=== PATIENT | female | born 1935 | race Caucasian/White ===

== ENCOUNTER 2017-10-25 10:18 | Emergency (ER) | payer MEDICARE ==
[~2017-10-25] VITALS: Ht 172.7 cm; Wt 77.1 kg
[~2017-10-25 10:18] MED LIST: ATOR20 PO; ATOR40TA; ATOR40TA PO; ATORVASTATIN; BENADRYL25 MG PO; BENZ2 PO; Bactrim Ds Tab1 EACH PO; Bentyl20 MG PO; CAND16; CAND16 PO; CEPH500 PO; CEREFOLIN NAC1 EACH PO; CIPR500 PO; CLOP75; CLOP75 PO; Colace100 MG PO; DONE10 PO; DONE5 PO; DULO30 PO; Diovan320 MG PO; ESCI20; EXCELON PATCH PO; Enulose10 GM/15 M PO; GABA300; GABA300 PO; GABA600 PO; HALO2 PO; HYDACE5 PO; HYDMOR2 PO; Keflex500 MG PO; LEVOXYL; LEVSOD100; LEVSOD100 PO; LEVSOD88 PO; MEMA10 PO; NAMENDA XR28 MG PO; Neurontin 300300 MG PO; Norco 5-325 Ta1 EACH PO; ONDA4ODT MM; OXYC5; OXYC5 PO; OXYTROL PATCH; PHENA200 PO; RAZADYNE; RXHYDMOR2 PO; RXONDA4ODT MM; RXPHEN200 PO; RXPROM25 PO; SIME80CH PO; SULTRIDS PO; SULTRISS PO; TRAZ50 PO; VALS80 PO; Zithromax250 MG PO; Zofran Odt4 MG PO; Zofran4 MG PO; [UNRECOGNIZED DRUG - CODE]; [UNRECOGNIZED DRUG - CODE] PO; [UNRECOGNIZED DRUG - OTHER]
[2017-10-25 11:38] LABS: BASOPHILS ABSOLUTE AUTO 0.01 K/mm3 (0.00-0.23); BASOPHILS PERCENT AUTO 0 % (0-2); EOSINOPHILS PERCENT AUTO 0 % (0-6); Hematocrit 43.5 % (33.0-51.0); Hemoglobin 14.5 g/dL (11.5-16.0); IMMATURE GRAN ABSOLUTE AUTO 0.04 K/mm3 (0.00-0.10); IMMATURE GRAN PERCENT AUTO 1 % (0-1); LYMPHOCYTES ABSOLUTE AUTO 0.92 K/mm3 (0.84-5.20); LYMPHOCYTES PERCENT AUTO 27 % (21-46); MONOCYTES ABSOLUTE AUTO 0.61 K/mm3 (0.16-1.47); MONOCYTES PERCENT AUTO 18 % (4-13); Mean Corpuscular HGB 32.2 pg (26.0-34.0); Mean Corpuscular HGB Conc 33.3 g/dL (31.5-36.5); Mean Corpuscular Volume 97 fL (80-100); Mean Platelet Volume 9.8 fL (9.1-12.4); NEUTROPHILS ABSOLUTE AUTO 1.89 K/mm3 (1.96-9.15); NEUTROPHILS PERCENT AUTO 54 % (41-73); Platelet Count 145 K/mm3 (150-400); RDW Coefficient Variation 13.5 % (11.7-14.2); RDW Standard Deviation 47.9 fL (35.1-46.3); White Blood Cell Count 3.47 K/mm3 (4.00-11.30)
[2017-10-25 11:45] LABS: Alanine Aminotransfer (ALT/SGP 22 U/L (12-78); Albumin, Blood 3.6 g/dL (3.4-5.0); Albumin/Globulin Ratio 0.9 (0.8-1.8); Alk Phos 108 U/L (50-136); Anion Gap 6 mmol/L (6-16); Aspartate Aminotrans (AST/SGOT 22 U/L (12-37); Bilirubin, Total 0.5 mg/dL (0.1-1.0); Blood Urea Nitrogen 15 mg/dL (8-24); Bun/Creatinine Ratio 18.5 (12.0-20.0); CO2, Blood 30 mmol/L (21-32); Calcium, Blood 8.6 mg/dL (8.5-10.1); Chloride, Blood 107 mmol/L (98-108); Creatinine, Blood 0.81 mg/dL (0.40-1.00); Globulin, Blood 3.8 g/dL (2.2-4.0); Glomerular Filtration Rate >60 (60-); Glucose, Blood 98 mg/dL (70-99); Sodium, Blood 143 mmol/L (136-145); Total Protein, Blood 7.4 g/dL (6.4-8.2)
== END 2017-10-25 13:25 | disposition home or self-care (01) ==
LOC: ER 10:18
PROVIDERS: Emergency Medicine
DX: R20.2 Paresthesia of skin (principal); F03.90 Unspecified dementia, unspecified severity, without behavioral disturbance, psychotic disturbance, mood disturbance, and anxiety; I10 Essential (primary) hypertension; Z88.0 Allergy status to penicillin; Z88.8 Allergy status to other drugs, medicaments and biological substances; Z88.1 Allergy status to other antibiotic agents; Z88.6 Allergy status to analgesic agent; Z91.09 Other allergy status, other than to drugs and biological substances; Z79.899 Other long term (current) drug therapy
CPT/HCPCS: 80053; 81000; 85025; 93005; 93010; 99284

== ENCOUNTER 2018-01-24 14:21 | Emergency (ER) | payer MEDICARE ==
[~2018-01-24] VITALS: Ht 170.2 cm; Wt 72.6 kg
== END 2018-01-24 15:39 | disposition home or self-care (01) ==
LOC: ER 14:21
DX: S09.90XA Unspecified injury of head, initial encounter (principal); I10 Essential (primary) hypertension; F03.90 Unspecified dementia, unspecified severity, without behavioral disturbance, psychotic disturbance, mood disturbance, and anxiety; Z86.73 Personal history of transient ischemic attack (TIA), and cerebral infarction without residual deficits; Z79.01 Long term (current) use of anticoagulants; W01.0XXA Fall on same level from slipping, tripping and stumbling without subsequent striking against object, initial encounter
CPT/HCPCS: 70450; 99284-25

== ENCOUNTER → 2018-02-05 | Outpatient (CLI) | payer MEDICARE | END | disposition home or self-care (01) | LOC: PLD 11:54 → LAB SHORT 11:54 | DX: L57.0 Actinic keratosis (principal) | CPT/HCPCS: 88305 ==

== ENCOUNTER 2018-02-13 17:43 | Emergency (ER) | payer MEDICARE ==
[~2018-02-13] VITALS: Ht 170.2 cm; Wt 70.3 kg
[2018-02-13 18:53] LABS: BASOPHILS ABSOLUTE AUTO 0.01 K/mm3 (0.00-0.23); BASOPHILS PERCENT AUTO 0 % (0-2); EOSINOPHILS PERCENT AUTO 0 % (0-6); Hematocrit 40.9 % (33.0-51.0); Hemoglobin 13.9 g/dL (11.5-16.0); IMMATURE GRAN ABSOLUTE AUTO 0.06 K/mm3 (0.00-0.10); IMMATURE GRAN PERCENT AUTO 1 % (0-1); LYMPHOCYTES PERCENT AUTO 12 % (21-46); MONOCYTES ABSOLUTE AUTO 0.96 K/mm3 (0.16-1.47); MONOCYTES PERCENT AUTO 17 % (4-13); Mean Corpuscular HGB 33.7 pg (26.0-34.0); Mean Corpuscular Volume 99 fL (80-100); Mean Platelet Volume 9.5 fL (9.1-12.4); NEUTROPHILS ABSOLUTE AUTO 3.91 K/mm3 (1.96-9.15); NEUTROPHILS PERCENT AUTO 69 % (41-73); Platelet Count 140 K/mm3 (150-400); RDW Coefficient Variation 13.3 % (11.7-14.2); Red Blood Cell Count 4.12 M/mm3 (3.80-5.20); White Blood Cell Count 5.64 K/mm3 (4.00-11.30)
[2018-02-13 19:12] LABS: Bilirubin, Total 0.5 mg/dL (0.1-1.0); Bun/Creatinine Ratio 15.8 (12.0-20.0); Calcium, Blood 8.9 mg/dL (8.5-10.1); Creatinine, Blood 0.95 mg/dL (0.40-1.00); Globulin, Blood 3.9 g/dL (2.2-4.0); Potassium, Blood 3.7 mmol/L (3.5-5.5); Total Protein, Blood 7.9 g/dL (6.4-8.2)
== END 2018-02-13 20:20 | disposition home or self-care (01) ==
LOC: ER 17:43
PROVIDERS: Emergency Medicine
DX: R10.13 Epigastric pain (principal); R11.2 Nausea with vomiting, unspecified; F03.90 Unspecified dementia, unspecified severity, without behavioral disturbance, psychotic disturbance, mood disturbance, and anxiety; I10 Essential (primary) hypertension; Z86.73 Personal history of transient ischemic attack (TIA), and cerebral infarction without residual deficits; Z88.8 Allergy status to other drugs, medicaments and biological substances; Z88.0 Allergy status to penicillin; Z88.1 Allergy status to other antibiotic agents; Z79.899 Other long term (current) drug therapy
CPT/HCPCS: 36415; 80053; 83690; 84484; 85025; 96374; 99284-25; J2405

== ENCOUNTER 2018-02-23 11:08 | Emergency (ER) | payer MEDICARE ==
[~2018-02-23] VITALS: Ht 170.2 cm; Wt 70.3 kg
[2018-02-23 12:59] LABS: Source, Urine Clean Catch
[2018-02-23 13:12] LABS: Blood, Urine 4+ (Neg); Glucose Qualitative, Urine Neg (Neg); Ketones, Urine Neg (Neg); Leukocyte Esterase, Urine 1+ (Neg); Nitrite, Urine Neg (Neg); Protein, Urine 2+ (Neg); Specific Gravity, Urine 1.025 (1.003-1.022); Urobilinogen, Urine 1+ (Normal)
[2018-02-23 13:25] LABS: Appearance, Urine Clear (Clear); Bilirubin, Urine 1+ (Neg); Color, Urine Amber (P-Yellow)
[2018-02-23 13:28] LABS: BASOPHILS PERCENT AUTO 0 % (0-2); EOSINOPHILS PERCENT AUTO 0 % (0-6); Hematocrit 44.3 % (33.0-51.0); Hemoglobin 14.9 g/dL (11.5-16.0); IMMATURE GRAN ABSOLUTE AUTO 0.03 K/mm3 (0.00-0.10); IMMATURE GRAN PERCENT AUTO 1 % (0-1); LYMPHOCYTES ABSOLUTE AUTO 1.07 K/mm3 (0.84-5.20); LYMPHOCYTES PERCENT AUTO 25 % (21-46); MONOCYTES ABSOLUTE AUTO 0.79 K/mm3 (0.16-1.47); MONOCYTES PERCENT AUTO 18 % (4-13); Mean Corpuscular HGB 33.2 pg (26.0-34.0); Mean Corpuscular HGB Conc 33.6 g/dL (31.5-36.5); Mean Corpuscular Volume 99 fL (80-100); Mean Platelet Volume 9.5 fL (9.1-12.4); NEUTROPHILS ABSOLUTE AUTO 2.41 K/mm3 (1.96-9.15); NEUTROPHILS PERCENT AUTO 56 % (41-73); Platelet Count 173 K/mm3 (150-400); RDW Coefficient Variation 13.2 % (11.7-14.2); RDW Standard Deviation 48.6 fL (35.1-46.3); Red Blood Cell Count 4.49 M/mm3 (3.80-5.20)
[2018-02-23 13:34] LABS: Bacteria Rare /hpf; Squamous Epithelial Cells Many /hpf (Few); White Blood Cells, Urine 0-2 /hpf (0-5)
[2018-02-23 13:50] LABS: Alanine Aminotransfer (ALT/SGP 20 U/L (12-78); Alk Phos 100 U/L (50-136); Anion Gap 6 mmol/L (6-16); Aspartate Aminotrans (AST/SGOT 25 U/L (12-37); Bilirubin, Total 0.7 mg/dL (0.1-1.0); Blood Urea Nitrogen 10 mg/dL (8-24); Bun/Creatinine Ratio 10.9 (12.0-20.0); CO2, Blood 29 mmol/L (21-32); Calcium, Blood 8.6 mg/dL (8.5-10.1); Chloride, Blood 106 mmol/L (98-108); Creatinine, Blood 0.92 mg/dL (0.40-1.00); Globulin, Blood 4.2 g/dL (2.2-4.0); Glomerular Filtration Rate >60 (60-); Glucose, Blood 105 mg/dL (70-99); Potassium, Blood 3.9 mmol/L (3.5-5.5); Sodium, Blood 141 mmol/L (136-145); Total Protein, Blood 8.2 g/dL (6.4-8.2)
[2018-02-23] MEDS ORDERED: Prilosec Otc20 MG PO (15:08)
[2018-02-23] MEDS ORDERED: ONDA4ODT MM (15:08)
== END 2018-02-23 15:18 | disposition home or self-care (01) ==
LOC: ER 11:08
PROVIDERS: Emergency Medicine
DX: R10.9 Unspecified abdominal pain (principal); R11.0 Nausea; I10 Essential (primary) hypertension; F03.90 Unspecified dementia, unspecified severity, without behavioral disturbance, psychotic disturbance, mood disturbance, and anxiety; Z86.73 Personal history of transient ischemic attack (TIA), and cerebral infarction without residual deficits; Z88.0 Allergy status to penicillin; Z88.8 Allergy status to other drugs, medicaments and biological substances; Z88.1 Allergy status to other antibiotic agents; Z79.899 Other long term (current) drug therapy
CPT/HCPCS: 36415; 74177; 80053; 81001; 83690; 84484; 85025; 96361; 96374; 96376; 99284-25; J2405; J7030; Q9967

== ENCOUNTER → 2018-07-14 | Outpatient (CLI) | payer MEDICARE ==
[~2018-07-14] MED LIST changes: +Prilosec Otc20 MG PO
[2018-07-14 11:40] LABS: Source, Urine Clean Catch
[2018-07-14 12:34] LABS: Appearance, Urine Clear (Clear); Bilirubin, Urine Neg (Neg); Blood, Urine 3+ (Neg); Color, Urine Yellow (P-Yellow); Glucose Qualitative, Urine Neg (Neg); Ketones, Urine Neg (Neg); Leukocyte Esterase, Urine 1+ (Neg); Nitrite, Urine Neg (Neg); Protein, Urine 1+ (Neg); Urobilinogen, Urine 1+ (Normal)
[2018-07-14 12:46] LABS: Bacteria Few /hpf; Squamous Epithelial Cells Few /hpf (Few)
== END | disposition home or self-care (01) ==
LOC: LAB SHORT 11:38 → LAB 11:38 → LAB FUT 07-14 10:10
PROVIDERS: Internal Medicine
DX: R30.0 Dysuria (principal)
CPT/HCPCS: 81001; 87086

== ENCOUNTER → 2018-07-20 | Outpatient (CLI) | payer MEDICARE ==
[2018-07-20 12:34] LABS: Bilirubin, Urine Neg (Neg); Blood, Urine 1+ (Neg); Glucose Qualitative, Urine Neg (Neg); Ketones, Urine Neg (Neg); Leukocyte Esterase, Urine 1+ (Neg); Nitrite, Urine Neg (Neg); Protein, Urine 1+ (Neg); Urobilinogen, Urine NORM (Normal)
[2018-07-20 12:48] LABS: Appearance, Urine Hazy (Clear); Color, Urine Yellow (P-Yellow)
[2018-07-20 12:56] LABS: Bacteria Rare /hpf; Squamous Epithelial Cells Rare /hpf (Few)
== END | disposition home or self-care (01) ==
LOC: LAB 09:30 → LAB SHORT 09:30 → EDSTATUS 07-17 15:10 → LAB FUT 07-17 15:10
PROVIDERS: Internal Medicine
DX: N39.0 Urinary tract infection, site not specified (principal)
CPT/HCPCS: 81001; 87077; 87086; 87186

== ENCOUNTER → 2018-07-31 | Outpatient (CLI) | payer MEDICARE ==
[2018-07-31 12:07] LABS: Bilirubin, Urine Neg (Neg); Blood, Urine 2+ (Neg); Glucose Qualitative, Urine Neg (Neg); Ketones, Urine Neg (Neg); Leukocyte Esterase, Urine 2+ (Neg); Nitrite, Urine Neg (Neg); Protein, Urine 1+ (Neg); Urobilinogen, Urine NORM (Normal)
[2018-07-31 12:26] LABS: Appearance, Urine Clear (Clear); Color, Urine Yellow (P-Yellow)
[2018-07-31 12:28] LABS: Bacteria Mod /hpf; Squamous Epithelial Cells Few /hpf (Few); White Blood Cells, Urine 50-100 /hpf (0-5)
== END | disposition home or self-care (01) ==
LOC: LAB 08:30 → LAB SHORT 08:30 → LAB FUT 07-24 20:15 → EDSTATUS 07-24 20:15
PROVIDERS: Internal Medicine
DX: N39.0 Urinary tract infection, site not specified (principal)
CPT/HCPCS: 81001; 87086

== ENCOUNTER → 2018-08-07 | Outpatient (CLI) | payer MEDICARE ==
[2018-08-07 14:47] LABS: Bilirubin, Urine Neg (Neg); Blood, Urine 2+ (Neg); Glucose Qualitative, Urine Neg (Neg); Ketones, Urine Neg (Neg); Leukocyte Esterase, Urine Neg (Neg); Nitrite, Urine Neg (Neg); Protein, Urine Neg (Neg); Urobilinogen, Urine NORM (Normal)
[2018-08-07 14:55] LABS: Appearance, Urine Clear (Clear); Color, Urine Yellow (P-Yellow)
[2018-08-07 14:56] LABS: Bacteria Rare /hpf; Red Blood Cells, Urine 0-2 /hpf (0-2); Squamous Epithelial Cells Rare /hpf (Few); White Blood Cells, Urine 0-2 /hpf (0-5)
== END | disposition home or self-care (01) ==
LOC: LAB 11:20 → LAB SHORT 11:20
PROVIDERS: Internal Medicine
DX: N39.0 Urinary tract infection, site not specified (principal)
CPT/HCPCS: 81001

== ENCOUNTER 2019-03-01 08:52 | Emergency (ER) | payer MEDICARE ==
[~2019-03-01] VITALS: Ht 170.2 cm; Wt 72.6 kg
[2019-03-01] MEDS ORDERED: RIVASTIGMINE1 EACH TD (10:08)
[2019-03-01] MEDS ORDERED: ATOR40TA PO (10:08)
[2019-03-01] MEDS ORDERED: LEVO-T88 MCG PO (10:15)
[2019-03-01] MEDS ORDERED: LOSARTAN POTASS25 M2 PO (10:15)
[2019-03-01] MEDS ORDERED: OXYC5 PO (10:15)
[2019-03-01] MEDS ORDERED: Bentyl20 MG PO (10:16)
[2019-03-01] MEDS ORDERED: GABA300 PO (10:17)
[2019-03-01 10:48] LABS: BASOPHILS ABSOLUTE AUTO 0.01 K/mm3 (0.00-0.23); BASOPHILS PERCENT AUTO 0 % (0-2); EOSINOPHILS PERCENT AUTO 0 % (0-6); Hematocrit 41.9 % (33.0-51.0); Hemoglobin 14.3 g/dL (11.5-16.0); IMMATURE GRAN ABSOLUTE AUTO 0.02 K/mm3 (0.00-0.10); IMMATURE GRAN PERCENT AUTO 1 % (0-1); LYMPHOCYTES ABSOLUTE AUTO 1.02 K/mm3 (0.84-5.20); LYMPHOCYTES PERCENT AUTO 28 % (21-46); MONOCYTES PERCENT AUTO 22 % (4-13); Mean Corpuscular HGB 33.6 pg (26.0-34.0); Mean Corpuscular HGB Conc 34.1 g/dL (31.5-36.5); Mean Corpuscular Volume 98 fL (80-100); Mean Platelet Volume 10.7 fL (9.1-12.4); NEUTROPHILS ABSOLUTE AUTO 1.85 K/mm3 (1.96-9.15); NEUTROPHILS PERCENT AUTO 50 % (41-73); Platelet Count 153 K/mm3 (150-400); RDW Coefficient Variation 12.9 % (11.7-14.2); RDW Standard Deviation 45.9 fL (35.1-46.3); Red Blood Cell Count 4.26 M/mm3 (3.80-5.20)
[2019-03-01 11:05] LABS: Alanine Aminotransfer (ALT/SGP 19 U/L (12-78); Albumin, Blood 3.7 g/dL (3.4-5.0); Alk Phos 104 U/L (50-136); Anion Gap 6 mmol/L (6-16); Aspartate Aminotrans (AST/SGOT 16 U/L (12-37); Bilirubin, Total 0.7 mg/dL (0.1-1.0); Blood Urea Nitrogen 12 mg/dL (8-24); Bun/Creatinine Ratio 15.6 (12.0-20.0); CO2, Blood 28 mmol/L (21-32); Calcium, Blood 8.4 mg/dL (8.5-10.1); Chloride, Blood 111 mmol/L (98-108); Creatinine, Blood 0.77 mg/dL (0.40-1.00); Globulin, Blood 3.6 g/dL (2.2-4.0); Glomerular Filtration Rate >60 (60-); Glucose, Blood 92 mg/dL (70-99); Potassium, Blood 3.8 mmol/L (3.5-5.5); Sodium, Blood 145 mmol/L (136-145); Total Protein, Blood 7.3 g/dL (6.4-8.2)
[2019-03-01 11:06] LABS: Troponin I <0.015 ng/mL (0.000-0.040)
== END 2019-03-01 12:48 | disposition home or self-care (01) ==
LOC: ER 08:52
PROVIDERS: Physician Assistant
DX: S09.90XA Unspecified injury of head, initial encounter (principal); I10 Essential (primary) hypertension; Z86.73 Personal history of transient ischemic attack (TIA), and cerebral infarction without residual deficits; Z88.8 Allergy status to other drugs, medicaments and biological substances; Z88.0 Allergy status to penicillin; Z88.1 Allergy status to other antibiotic agents; Z79.899 Other long term (current) drug therapy; Z79.02 Long term (current) use of antithrombotics/antiplatelets; W19.XXXA Unspecified fall, initial encounter
CPT/HCPCS: 36415; 70450; 71046; 72125; 73502; 73630; 80053; 83880; 84484; 85025; 93005; 93010; 99284-25

== ENCOUNTER → 2019-04-25 | Outpatient (CLI) | payer MEDICARE ==
[~2019-04-25] MED LIST changes: +CEFP200 PO; +LEVO-T88 MCG PO; +LOSARTAN POTASS25 M2 PO; +RIVASTIGMINE1 EACH TD
[2019-04-25 11:18] LABS: CHOL/HDL RATIO 2.3; Cholesterol 154 mg/dL (50-200); HDL Cholesterol 68 mg/dL (>39); Low Density Lipoprotein Chol 68 mg/dL (0-110); Triglycerides 90 mg/dL (30-160); Very Low Density Lipoprot Chol 18 mg/dL (6-32)
[2019-04-25 11:20] LABS: Thyroid Stimulating Hormone 0.371 uIU/mL (0.360-4.800)
== END | disposition home or self-care (01) ==
LOC: LAB 10:20 → LAB SHORT 10:20
PROVIDERS: Internal Medicine
DX: E55.9 Vitamin D deficiency, unspecified (principal); F32.9 Major depressive disorder, single episode, unspecified
CPT/HCPCS: 36415; 80061; 84443

== ENCOUNTER 2019-08-31 17:27 | Emergency (ER) | payer MEDICARE ==
[~2019-08-31] VITALS: Ht 165.1 cm; Wt 65.8 kg
== END 2019-08-31 18:37 | disposition left against medical advice (07) ==
LOC: ER 17:27
DX: Z53.21 Procedure and treatment not carried out due to patient leaving prior to being seen by health care provider (principal)

== ENCOUNTER → 2020-02-19 | Outpatient (CLI) | payer MEDICARE ==
[~2020-02-19] MED LIST changes: +CEFPODOXIME PR100 MG PO
[2020-02-19 15:40] LABS: Appearance, Urine Clear (Clear); Bilirubin, Urine Neg (Neg); Blood, Urine Neg (Neg); Color, Urine Yellow (P-Yellow); Glucose Qualitative, Urine Neg (Neg); Ketones, Urine Neg (Neg); Leukocyte Esterase, Urine Neg (Neg); Nitrite, Urine Neg (Neg); Protein, Urine Neg (Neg); Specific Gravity, Urine 1.015 (1.003-1.022); Urobilinogen, Urine NORM (Normal)
== END | disposition home or self-care (01) ==
LOC: LAB SHORT 12:30 → OLS 12:30 → LAB FUT 02-13 15:00
PROVIDERS: Internal Medicine
DX: N39.0 Urinary tract infection, site not specified (principal)
CPT/HCPCS: 81003

== ENCOUNTER 2020-06-28 18:53 | Emergency (ER) | payer MEDICARE ==
[~2020-06-28] VITALS: Ht 170.2 cm; Wt 65.8 kg
[2020-06-28] MEDS ORDERED: ACET500 PO (19:03)
[2020-06-28] MEDS ORDERED: ATOR20 PO (19:03)
[2020-06-28] MEDS ORDERED: CLOP75 PO (19:04)
[2020-06-28] MEDS ORDERED: CEPH250A PO (19:04)
[2020-06-28] MEDS ORDERED: GABA300 PO (19:05)
[2020-06-28] MEDS ORDERED: EUTHYROX88 MCG PO (19:06)
[2020-06-28] MEDS ORDERED: LOSA25 PO (19:10)
[2020-06-28] MEDS ORDERED: OMEPRAZOLE20 MG PO (19:11)
[2020-06-28] MEDS ORDERED: MEMANTINE HCL E28 MG PO (19:11)
[2020-06-28] MEDS ORDERED: METAMUCIL POWD575 GM PO (19:11)
[2020-06-28] MEDS ORDERED: SERT100 PO (19:12)
[2020-06-28] MEDS ORDERED: EXELON TOP (19:12)
[2020-06-28] MEDS ORDERED: TRAZ50 PO (19:13)
[2020-06-28 19:29] LABS: BASOPHILS PERCENT AUTO 0 % (0-2); EOSINOPHILS PERCENT AUTO 0 % (0-6); Hematocrit 38.1 % (33.0-51.0); Hemoglobin 12.3 g/dL (11.5-16.0); IMMATURE GRAN ABSOLUTE AUTO 0.02 K/mm3 (0.00-0.10); IMMATURE GRAN PERCENT AUTO 0 % (0-1); LYMPHOCYTES PERCENT AUTO 16 % (21-46); MONOCYTES ABSOLUTE AUTO 1.41 K/mm3 (0.16-1.47); MONOCYTES PERCENT AUTO 28 % (4-13); Mean Corpuscular HGB 32.1 pg (26.0-34.0); Mean Corpuscular HGB Conc 32.3 g/dL (31.5-36.5); Mean Corpuscular Volume 100 fL (80-100); Mean Platelet Volume 10.3 fL (9.1-12.4); NEUTROPHILS ABSOLUTE AUTO 2.87 K/mm3 (1.96-9.15); NEUTROPHILS PERCENT AUTO 56 % (41-73); Platelet Count 147 K/mm3 (150-400); RDW Coefficient Variation 13.6 % (11.7-14.2); Red Blood Cell Count 3.83 M/mm3 (3.80-5.20)
[2020-06-28 19:34] LABS: Source, Urine Catheter
[2020-06-28 19:37] LABS: Bilirubin, Urine Neg (Neg); Blood, Urine 4+ (Neg); Glucose Qualitative, Urine Neg (Neg); Ketones, Urine 1+ (Neg); Leukocyte Esterase, Urine Neg (Neg); Nitrite, Urine Neg (Neg); Protein, Urine 4+ (Neg); Specific Gravity, Urine 1.015 (1.003-1.022); Urobilinogen, Urine NORM (Normal)
[2020-06-28 19:39] LABS: Color, Urine Red (P-Yellow)
[2020-06-28 19:40] LABS: Appearance, Urine Bloody (Clear)
[2020-06-28 19:44] LABS: Bacteria Rare /hpf; Red Blood Cells, Urine TNTC /hpf (0-2); Squamous Epithelial Cells Rare /hpf (Few); White Blood Cells, Urine 0-2 /hpf (0-5)
[2020-06-28 19:47] LABS: International Normalized Ratio 1.1; Prothrombin Time Results 11.7 Sec (9.7-11.5)
[2020-06-28 19:51] LABS: Albumin, Blood 3.6 g/dL (3.4-5.0); Albumin/Globulin Ratio 1.1 (0.8-1.8); Bilirubin, Total 0.5 mg/dL (0.1-1.0); Bun/Creatinine Ratio 17.8 (12.0-20.0); Calcium, Blood 9.1 mg/dL (8.5-10.1); Creatinine, Blood 1.18 mg/dL (0.40-1.00); Globulin, Blood 3.2 g/dL (2.2-4.0); Total Protein, Blood 6.8 g/dL (6.4-8.2)
[2020-06-28] MEDS ORDERED: CIPR250 PO (20:19)
== END 2020-06-28 20:47 | disposition home or self-care (01) ==
LOC: ER 18:53
PROVIDERS: Emergency Medicine
DX: R31.9 Hematuria, unspecified (principal); I10 Essential (primary) hypertension; Z79.02 Long term (current) use of antithrombotics/antiplatelets; Z88.0 Allergy status to penicillin; Z88.8 Allergy status to other drugs, medicaments and biological substances; Z88.6 Allergy status to analgesic agent; Z91.041 Radiographic dye allergy status; Z87.440 Personal history of urinary (tract) infections; Z79.899 Other long term (current) drug therapy; Z88.1 Allergy status to other antibiotic agents; Z86.73 Personal history of transient ischemic attack (TIA), and cerebral infarction without residual deficits
CPT/HCPCS: 36415; 76770; 80053; 81001; 85025; 85610; 85730; 99284-25; A9270; P9612

== ENCOUNTER → 2020-07-04 | Outpatient (CLI) | payer MEDICARE ==
[~2020-07-04] MED LIST changes: +ACET500 PO; +ATROPINE SULFATE2 M5 SL; +Ativan1 MG PO; +Bentyl20 MG; +CEPH250A PO; +CIPR250 PO; +EUTHYROX88 MCG PO; +EXELON TOP; +LACT10SY; +LOSA25 PO; +MEMANTINE HCL E28 MG PO; +METAMUCIL POWD575 GM; +METAMUCIL POWD575 GM PO; +MIRALAX119 GM PO; +MORP20L SL; +OMEPRAZOLE20 MG PO; +ONDA4 PO; +PHENAZOPYRIDINE95 MG; +SEROQUEL25 MG PO; +SERT100 PO; +SIME80CH; +VITAMIN D31000 UNI1
[2020-07-04 15:21] LABS: Source, Urine Clean Catch
[2020-07-04 15:51] LABS: Appearance, Urine Clear (Clear); Bilirubin, Urine Neg (Neg); Blood, Urine Neg (Neg); Color, Urine Amber (P-Yellow); Glucose Qualitative, Urine Neg (Neg); Ketones, Urine Neg (Neg); Leukocyte Esterase, Urine 1+ (Neg); Nitrite, Urine Neg (Neg); Protein, Urine 1+ (Neg); Urobilinogen, Urine NORM (Normal)
[2020-07-04 16:09] LABS: Calcium Oxalate Crystals Mod /hpf; Hyaline Casts 0-2 /lpf (0-2)
[2020-07-04 16:10] LABS: Bacteria Few /hpf; Red Blood Cells, Urine 0-2 /hpf (0-2); Squamous Epithelial Cells Few /hpf (Few)
== END | disposition home or self-care (01) ==
LOC: LAB 10:30 → LAB SHORT 10:30
PROVIDERS: Internal Medicine
DX: R30.9 Painful micturition, unspecified (principal)
CPT/HCPCS: 81001; 87086

== ENCOUNTER → 2020-08-30 | Outpatient (CLI) | payer MEDICARE ==
[2020-08-30 12:46] LABS: Appearance, Urine Clear (Clear); Bilirubin, Urine Neg (Neg); Blood, Urine Neg (Neg); Color, Urine Yellow (P-Yellow); Glucose Qualitative, Urine Neg (Neg); Ketones, Urine Neg (Neg); Leukocyte Esterase, Urine 2+ (Neg); Nitrite, Urine Neg (Neg); Protein, Urine Neg (Neg); Urobilinogen, Urine NORM (Normal)
[2020-08-30 13:09] LABS: Red Blood Cells, Urine 0-2 /hpf (0-2); White Blood Cells, Urine 25-50 /hpf (0-5)
[2020-08-30 13:10] LABS: Bacteria Mod /hpf; Calcium Oxalate Crystals Rare /hpf; Squamous Epithelial Cells Few /hpf (Few)
== END ==
LOC: LAB 10:09 → LAB SHORT 10:09
PROVIDERS: Nurse Practitioner
DX: N39.0 Urinary tract infection, site not specified (principal); R31.0 Gross hematuria; R30.0 Dysuria
CPT/HCPCS: 81001; 87077; 87086; 87186; 88108

== ENCOUNTER 2020-09-05 10:56 | Emergency (ER) | payer MEDICARE ==
[~2020-09-05] VITALS: Ht 170.2 cm; Wt 59.0 kg
[~2020-09-05 10:56] MED LIST changes: -ATROPINE SULFATE2 M5 SL; -Ativan1 MG PO; -Bentyl20 MG; -LACT10SY; -METAMUCIL POWD575 GM; -MIRALAX119 GM PO; -MORP20L SL; -ONDA4 PO; -PHENAZOPYRIDINE95 MG; -SEROQUEL25 MG PO; -SIME80CH; -VITAMIN D31000 UNI1
[2020-09-05] MEDS ORDERED: ONDA4 PO (11:10)
[2020-09-05] MEDS ORDERED: SERT100 PO (11:11)
[2020-09-05] MEDS ORDERED: OXYC5 PO (11:11)
[2020-09-05] MEDS ORDERED: TRAZ50 PO (11:12)
[2020-09-05 11:25] LABS: BASOPHILS ABSOLUTE AUTO 0.01 K/mm3 (0.00-0.23); BASOPHILS PERCENT AUTO 0 % (0-2); EOSINOPHILS PERCENT AUTO 0 % (0-6); Hematocrit 40.5 % (33.0-51.0); Hemoglobin 13.4 g/dL (11.5-16.0); IMMATURE GRAN ABSOLUTE AUTO 0.03 K/mm3 (0.00-0.10); IMMATURE GRAN PERCENT AUTO 1 % (0-1); LYMPHOCYTES ABSOLUTE AUTO 0.91 K/mm3 (0.84-5.20); LYMPHOCYTES PERCENT AUTO 22 % (21-46); MONOCYTES PERCENT AUTO 20 % (4-13); Mean Corpuscular HGB 32.6 pg (26.0-34.0); Mean Corpuscular HGB Conc 33.1 g/dL (31.5-36.5); Mean Corpuscular Volume 99 fL (80-100); Mean Platelet Volume 10.6 fL (9.1-12.4); NEUTROPHILS ABSOLUTE AUTO 2.32 K/mm3 (1.96-9.15); NEUTROPHILS PERCENT AUTO 57 % (41-73); Platelet Count 146 K/mm3 (150-400); RDW Coefficient Variation 13.5 % (11.7-14.2); RDW Standard Deviation 49.3 fL (35.1-46.3); Red Blood Cell Count 4.11 M/mm3 (3.80-5.20); White Blood Cell Count 4.07 K/mm3 (4.00-11.30)
[2020-09-05 11:45] LABS: Albumin, Blood 3.9 g/dL (3.4-5.0); Albumin/Globulin Ratio 1.1 (0.8-1.8); Bilirubin, Total 0.4 mg/dL (0.1-1.0); Bun/Creatinine Ratio 19.3 (12.0-20.0); Calcium, Blood 8.8 mg/dL (8.5-10.1); Creatinine, Blood 1.09 mg/dL (0.40-1.00); Globulin, Blood 3.7 g/dL (2.2-4.0); Total Protein, Blood 7.6 g/dL (6.4-8.2)
== END 2020-09-05 13:45 | disposition home or self-care (01) ==
LOC: ER 10:56
PROVIDERS: Emergency Medicine
DX: S09.90XA Unspecified injury of head, initial encounter (principal); W01.198A Fall on same level from slipping, tripping and stumbling with subsequent striking against other object, initial encounter; Z88.6 Allergy status to analgesic agent; Z88.0 Allergy status to penicillin; Z88.8 Allergy status to other drugs, medicaments and biological substances; Z88.1 Allergy status to other antibiotic agents; Z79.899 Other long term (current) drug therapy; I10 Essential (primary) hypertension; F03.90 Unspecified dementia, unspecified severity, without behavioral disturbance, psychotic disturbance, mood disturbance, and anxiety; Z86.73 Personal history of transient ischemic attack (TIA), and cerebral infarction without residual deficits
CPT/HCPCS: 36415; 70450; 80053; 85025; 93005; 93010; 99284-25

== ENCOUNTER 2020-09-07 00:28 | Emergency (ER) | payer MEDICARE ==
[~2020-09-07] VITALS: Ht 167.6 cm; Wt 57.6 kg
[~2020-09-07 00:28] MED LIST changes: +ONDA4 PO
[2020-09-07] MEDS ORDERED: LACT10SY (00:47)
[2020-09-07] MEDS ORDERED: PHENAZOPYRIDINE95 MG (00:47)
[2020-09-07] MEDS ORDERED: Bentyl20 MG (00:47)
[2020-09-07] MEDS ORDERED: METAMUCIL POWD575 GM (00:48)
[2020-09-07] MEDS ORDERED: SIME80CH (00:48)
[2020-09-07] MEDS ORDERED: MIRALAX119 GM PO (00:49)
[2020-09-07] MEDS ORDERED: VITAMIN D31000 UNI1 (00:49)
[2020-09-07] MEDS ORDERED: SEROQUEL25 MG PO (00:49)
== END 2020-09-07 03:09 | disposition home or self-care (01) ==
LOC: ER 00:28
DX: S01.81XA Laceration without foreign body of other part of head, initial encounter (principal); I10 Essential (primary) hypertension; Z79.02 Long term (current) use of antithrombotics/antiplatelets; Z79.82 Long term (current) use of aspirin; Z88.0 Allergy status to penicillin; Z88.8 Allergy status to other drugs, medicaments and biological substances; Z91.041 Radiographic dye allergy status; Z88.1 Allergy status to other antibiotic agents; W18.30XA Fall on same level, unspecified, initial encounter
CPT/HCPCS: 12002; 70450; 72125; 99284-25

== ENCOUNTER 2020-10-24 13:37 | Emergency (ER) | payer MEDICARE ==
[~2020-10-24] VITALS: Ht 170.2 cm; Wt 65.8 kg
[~2020-10-24 13:37] MED LIST changes: +Bentyl20 MG; +LACT10SY; +METAMUCIL POWD575 GM; +MIRALAX119 GM PO; +PHENAZOPYRIDINE95 MG; +SEROQUEL25 MG PO; +SIME80CH; +VITAMIN D31000 UNI1
[2020-10-24 16:00] LABS: Calcium, Ionized (POC) 1.23 mmol/L (1.10-1.46); Chloride (POC) 103 mmol/L (98-108); Creatinine (POC) 1.2 mg/dL (0.6-1.0); Glucose (ISTAT POC) 97 mg/dL (70-99); Hemoglobin (POC) 12.6 g/dL (12.0-16.0); Potassium (POC) 3.7 mmol/L (3.5-5.5); Sodium (POC) 146 mmol/L (135-148); Total CO2 (POC) 32 mmol/L (21-32)
== END 2020-10-24 16:40 | disposition home or self-care (01) ==
LOC: ER 13:37
PROVIDERS: Emergency Medicine
DX: R03.1 Nonspecific low blood-pressure reading (principal); R06.02 Shortness of breath; F03.90 Unspecified dementia, unspecified severity, without behavioral disturbance, psychotic disturbance, mood disturbance, and anxiety; I10 Essential (primary) hypertension; Z79.899 Other long term (current) drug therapy; Z79.82 Long term (current) use of aspirin; Z91.041 Radiographic dye allergy status; Z88.1 Allergy status to other antibiotic agents; Z88.8 Allergy status to other drugs, medicaments and biological substances; Z88.0 Allergy status to penicillin; Z79.02 Long term (current) use of antithrombotics/antiplatelets; Z86.73 Personal history of transient ischemic attack (TIA), and cerebral infarction without residual deficits
CPT/HCPCS: 80047; 85014; 93005; 93010; 99285-25

== ENCOUNTER 2020-11-15 11:56 | Emergency (ER) | payer OTHER, MEDICARE ==
[~2020-11-15] VITALS: Ht 167.6 cm; Wt 63.5 kg
[2020-11-15 12:30] LABS: Calcium, Ionized (POC) 1.26 mmol/L (1.10-1.46); Chloride (POC) 104 mmol/L (98-108); Glucose (ISTAT POC) 83 mg/dL (70-99); Hemoglobin (POC) 14.3 g/dL (12.0-16.0); Potassium (POC) 4.4 mmol/L (3.5-5.5); Sodium (POC) 144 mmol/L (135-148); Total CO2 (POC) 31 mmol/L (21-32)
== END 2020-11-15 13:36 | disposition home or self-care (01) ==
LOC: ER 11:56
PROVIDERS: Emergency Medicine
DX: Z04.3 Encounter for examination and observation following other accident (principal); F03.90 Unspecified dementia, unspecified severity, without behavioral disturbance, psychotic disturbance, mood disturbance, and anxiety; I10 Essential (primary) hypertension; W18.30XA Fall on same level, unspecified, initial encounter; Z88.6 Allergy status to analgesic agent; Z88.0 Allergy status to penicillin; Z88.1 Allergy status to other antibiotic agents; Z79.899 Other long term (current) drug therapy
CPT/HCPCS: 80047; 85014; 99283

== ENCOUNTER 2020-12-19 18:27 | Inpatient (IN) | payer OTHER, MEDICARE ==
[~2020-12-19] VITALS: Ht 157.5 cm; Wt 54.4 kg
[2020-12-19 21:57] LABS: BASOPHILS ABSOLUTE AUTO 0.02 K/mm3 (0.00-0.23); BASOPHILS PERCENT AUTO 0 % (0-2); EOSINOPHILS PERCENT AUTO 0 % (0-6); Hematocrit 41.8 % (33.0-51.0); Hemoglobin 13.8 g/dL (11.5-16.0); IMMATURE GRAN PERCENT AUTO 1 % (0-1); LYMPHOCYTES PERCENT AUTO 11 % (21-46); MONOCYTES ABSOLUTE AUTO 1.19 K/mm3 (0.16-1.47); MONOCYTES PERCENT AUTO 13 % (4-13); Mean Corpuscular HGB 32.1 pg (26.0-34.0); Mean Corpuscular Volume 97 fL (80-100); Mean Platelet Volume 10.5 fL (9.1-12.4); NEUTROPHILS ABSOLUTE AUTO 6.77 K/mm3 (1.96-9.15); NEUTROPHILS PERCENT AUTO 75 % (41-73); Platelet Count 144 K/mm3 (150-400); RDW Coefficient Variation 13.2 % (11.7-14.2); RDW Standard Deviation 47.5 fL (35.1-46.3); White Blood Cell Count 9.08 K/mm3 (4.00-11.30)
[2020-12-19 22:15] LABS: International Normalized Ratio 0.99; Prothrombin Time Results 10.7 Sec (9.7-11.5)
[2020-12-19 22:17] LABS: Albumin/Globulin Ratio 1.1 (0.8-1.8); Bilirubin, Total 0.4 mg/dL (0.1-1.0); Bun/Creatinine Ratio 31.5 (12.0-20.0); Calcium, Blood 8.8 mg/dL (8.5-10.1); Creatinine, Blood 0.95 mg/dL (0.40-1.00); Globulin, Blood 3.8 g/dL (2.2-4.0); Potassium, Blood 3.6 mmol/L (3.5-5.5); Total Protein, Blood 7.8 g/dL (6.4-8.2)
[2020-12-20 05:52] LABS: BASOPHILS ABSOLUTE AUTO 0.01 K/mm3 (0.00-0.23); BASOPHILS PERCENT AUTO 0 % (0-2); EOSINOPHILS PERCENT AUTO 0 % (0-6); Hematocrit 40.1 % (33.0-51.0); Hemoglobin 13.4 g/dL (11.5-16.0); IMMATURE GRAN ABSOLUTE AUTO 0.11 K/mm3 (0.00-0.10); IMMATURE GRAN PERCENT AUTO 1 % (0-1); LYMPHOCYTES ABSOLUTE AUTO 0.49 K/mm3 (0.84-5.20); LYMPHOCYTES PERCENT AUTO 5 % (21-46); MONOCYTES ABSOLUTE AUTO 1.26 K/mm3 (0.16-1.47); MONOCYTES PERCENT AUTO 14 % (4-13); Mean Corpuscular HGB 32.3 pg (26.0-34.0); Mean Corpuscular HGB Conc 33.4 g/dL (31.5-36.5); Mean Corpuscular Volume 97 fL (80-100); Mean Platelet Volume 10.4 fL (9.1-12.4); NEUTROPHILS ABSOLUTE AUTO 7.46 K/mm3 (1.96-9.15); NEUTROPHILS PERCENT AUTO 80 % (41-73); Platelet Count 134 K/mm3 (150-400); RDW Coefficient Variation 13.2 % (11.7-14.2); RDW Standard Deviation 47.3 fL (35.1-46.3); Red Blood Cell Count 4.15 M/mm3 (3.80-5.20); White Blood Cell Count 9.33 K/mm3 (4.00-11.30)
--- NOTE | 2020-12-20 05:54 | NUR ---
SHIFT SUMMARY PT NEW ED ADMIT THIS EVENING. VERY PAINFUL UPON ARRIVAL AND MORE PAINFUL AFTER TRANSFERING PT TO BED FROM [facility] AND CHANGING ATTENDS. ORDERED PAIN MEDS NOT DUE AT THE TIME. NOTIFIED DR. QUIÑONES WITH ONE TIME ORDER FOR IV MORPHINE. LITTLE TO NO EFFECT. PT CONTINUED TO MOAN IN THE BED, SAYING "OW, I HURT" OVER AND OVER. NOTIFIED DR. QUIÑONES AGAIN WHO STATED TO TRIAL PT OUTSIDE OF RESTRAINTS BELIEVING THAT IT WAS MORE ANXIETY RELATED. PT CONTINUED TO MOAN EVEN AFTER RESTRAINTS WERE REMOVED. IV FENTANYL GIVEN ONCE DUE AND PT FINALLY CALMED DOWN. APPEARS TO BE SLEEPING AT THIS TIME. ICE PACK ALSO PLACED TO R HIP. PT IS SEVERELY DEMENTED. WAS COMBATIVE WITH STAFF DOWN IN ED AND PULLS ON LINES. HAS NOT BEEN COMBATIVE WITH STAFF SINCE ADMISSION AND SO FAR HAS LEFT HER IV ALONE. RESTRAINTS REMAIN OFF AT THIS TIME. BLOOD PRESSURE HIGH, MD ALSO AWARE. BELIEVES IT IS RELATED TO PAIN AND ANXIETY. OTHERWISE VSS. PT ON 4 L O2 VIA NC. PT RESTING IN BED AT THIS TIME. WILL CONTINUE TO MONITOR.
[2020-12-20 06:28] LABS: Alanine Aminotransfer (ALT/SGP 18 U/L (12-78); Albumin, Blood 3.9 g/dL (3.4-5.0); Albumin/Globulin Ratio 1.1 (0.8-1.8); Alk Phos 119 U/L (50-136); Anion Gap 5 mmol/L (6-16); Aspartate Aminotrans (AST/SGOT 20 U/L (12-37); Bilirubin, Total 0.7 mg/dL (0.1-1.0); Blood Urea Nitrogen 29 mg/dL (8-24); Bun/Creatinine Ratio 32.3 (12.0-20.0); CO2, Blood 26 mmol/L (21-32); Calcium, Blood 8.6 mg/dL (8.5-10.1); Chloride, Blood 111 mmol/L (98-108); Globulin, Blood 3.7 g/dL (2.2-4.0); Glomerular Filtration Rate >60 (60-); Glucose, Blood 140 mg/dL (70-99); Potassium, Blood 3.9 mmol/L (3.5-5.5); Sodium, Blood 142 mmol/L (136-145); Total Protein, Blood 7.6 g/dL (6.4-8.2)
--- NOTE | 2020-12-20 18:43 | NUR ---
ALERT TO SELF AND FAMILY. PAIN MEDS CHANGED AND SEEM TO BE HELPING MORE.FAMILY AWARE SUREGERY MAY BE LATE TONIGHT OR EARLY TOMORROW. IV INFUSING GENTLE HYDRATION AT 50 ML/HR. SARGENT PLACED. CAREGIVER IN ROOM.WCTM
--- NOTE | 2020-12-20 20:12 | NUR ---
2005 PT TO SURGERY AT THIS TIME
--- NOTE | 2020-12-20 23:30 | NUR ---
pt back from surgery at this time. currently asleep. bed alarm on.
--- NOTE | 2020-12-21 04:08 | NUR ---
0350 PT WOKEN UP FROM ANESTHESIA WITH LEGS DRAWN UP AND KICKING, AND HANDS GRABBING AT SARGENT AND SURGICAL BANDAGE. PT CRYING IN PAIN. IV PAIN MEDICATION ADMINISTERED, HOWEVER PT WILL NOT KEEP STILL AND TRYING TO PULL AT EVERYTHING. HOSPITALIST NOTIFIED. SOFT BILATERAL WRIST RESTRAINTS, SOFT BILATERAL ANKLE RESTIRANTS AND BILATERAL MITTS ORDERED AND APPLIED. IV HALDOL ALSO ORDERED FOR AGITATION. BED ALARM ON, WILL CONTINUE TO MONITOR.
[2020-12-21 05:29] LABS: BASOPHILS ABSOLUTE AUTO 0.01 K/mm3 (0.00-0.23); BASOPHILS PERCENT AUTO 0 % (0-2); EOSINOPHILS PERCENT AUTO 0 % (0-6); Hematocrit 35.9 % (33.0-51.0); Hemoglobin 11.7 g/dL (11.5-16.0); IMMATURE GRAN ABSOLUTE AUTO 0.11 K/mm3 (0.00-0.10); IMMATURE GRAN PERCENT AUTO 1 % (0-1); LYMPHOCYTES ABSOLUTE AUTO 0.48 K/mm3 (0.84-5.20); LYMPHOCYTES PERCENT AUTO 4 % (21-46); MONOCYTES PERCENT AUTO 19 % (4-13); Mean Corpuscular HGB 32.4 pg (26.0-34.0); Mean Corpuscular HGB Conc 32.6 g/dL (31.5-36.5); Mean Corpuscular Volume 99 fL (80-100); NEUTROPHILS ABSOLUTE AUTO 9.37 K/mm3 (1.96-9.15); NEUTROPHILS PERCENT AUTO 76 % (41-73); Platelet Count 123 K/mm3 (150-400); RDW Coefficient Variation 13.5 % (11.7-14.2); RDW Standard Deviation 49.4 fL (35.1-46.3); Red Blood Cell Count 3.61 M/mm3 (3.80-5.20); White Blood Cell Count 12.37 K/mm3 (4.00-11.30)
[2020-12-21 05:57] LABS: Anion Gap 7 mmol/L (6-16); Blood Urea Nitrogen 30 mg/dL (8-24); CO2, Blood 26 mmol/L (21-32); Calcium, Blood 8.3 mg/dL (8.5-10.1); Chloride, Blood 112 mmol/L (98-108); Creatinine, Blood 0.94 mg/dL (0.40-1.00); Glomerular Filtration Rate >60 (60-); Glucose, Blood 139 mg/dL (70-99); Potassium, Blood 3.9 mmol/L (3.5-5.5); Sodium, Blood 145 mmol/L (136-145)
--- NOTE | 2020-12-21 06:15 | NUR ---
PRINT MANAGER SUMMARY PT HAS SLEPT UP UNTIL AROUND 0300 THIS MORNING. PT SUDDENLY WOKE UP AND STARTED YELLING, KICKING LEGS AND PULLING AT EVERYTHING INCLUDING RECENT SURGICAL BANDAGE ON RIGHT HIP. PLEASE REVIEW PREVIOUS RN NOTE. PT GIVEN IV HALDOL FOR AGITATION AND PT HAS BEEN MOSTLY ASLEEP SINCE. SARGENT PATENT AND DRAININING TO GRAVITY. HR SLOWLY COMING BACK DOWN. OTHER VITALS ARE STABLE. CALL LIGHT WITHIN REACH, BED ALARM ON, WILL CONTINUE TO MONITOR.
--- NOTE | 2020-12-21 18:10 | NUR ---
PT APPEARS TO BE ORIENTED TO SELF ONLY, SPOUSE WAS AT BEDSIDE AND PT DID NOT APPEAR TO RECOGNIZE HIM. SHE SLEPT A GREAT DEAL TODAY, WAS AGITATED WHEN AWAKE. MEDICATED FOR PAIN PER EMAR. PHYSICAL THERAPY EVAL OF PT TODAY, SEE NOTE. NO ACUTE CHANGES NOTED THIS SHIFT, WILL CONTINUE TO MONITOR AND REPORT TO ONCOMING RN.
--- NOTE | 2020-12-22 05:32 | NUR ---
QUALITY ASSURANCE SPECIALIST SUMMARY PT SLEPT MOST OF THE NIGHT TONIGHT. HOWEVER WHEN PT WAKES UP, SHE'D START JERKING AROUND IN BED AND ATTEMPT TO GRAB AND MOVE LEGS. MEDICATED FOR PAIN X2 THIS SHIFT. PT WAS ON 3L AT BEGINNING OF SHIFT, HAS BEEN TITRATED DOWN TO 1L O2 VIA NC SATTING IN THE HIGH 90'S. TAKES MEDS CRUSHED IN APPLESAUCE. ORIENTED TO NONE. BED ALARM ON, WILL CONTINUE TO MONITOR.
[2020-12-22 10:10] LABS: BASOPHILS ABSOLUTE AUTO 0.02 K/mm3 (0.00-0.23); BASOPHILS PERCENT AUTO 0 % (0-2); EOSINOPHILS PERCENT AUTO 0 % (0-6); Hematocrit 32.6 % (33.0-51.0); Hemoglobin 10.6 g/dL (11.5-16.0); IMMATURE GRAN ABSOLUTE AUTO 0.09 K/mm3 (0.00-0.10); IMMATURE GRAN PERCENT AUTO 1 % (0-1); LYMPHOCYTES ABSOLUTE AUTO 0.63 K/mm3 (0.84-5.20); LYMPHOCYTES PERCENT AUTO 5 % (21-46); MONOCYTES PERCENT AUTO 25 % (4-13); Mean Corpuscular HGB 32.5 pg (26.0-34.0); Mean Corpuscular HGB Conc 32.5 g/dL (31.5-36.5); Mean Corpuscular Volume 100 fL (80-100); NEUTROPHILS ABSOLUTE AUTO 8.61 K/mm3 (1.96-9.15); NEUTROPHILS PERCENT AUTO 69 % (41-73); Platelet Count 108 K/mm3 (150-400); RDW Coefficient Variation 13.5 % (11.7-14.2); RDW Standard Deviation 50.1 fL (35.1-46.3); Red Blood Cell Count 3.26 M/mm3 (3.80-5.20); White Blood Cell Count 12.45 K/mm3 (4.00-11.30)
[2020-12-22 10:21] LABS: Anion Gap 4 mmol/L (6-16); Blood Urea Nitrogen 27 mg/dL (8-24); Bun/Creatinine Ratio 35.3 (12.0-20.0); CO2, Blood 28 mmol/L (21-32); Calcium, Blood 8.4 mg/dL (8.5-10.1); Chloride, Blood 114 mmol/L (98-108); Creatinine, Blood 0.77 mg/dL (0.40-1.00); Glomerular Filtration Rate >60 (60-); Glucose, Blood 106 mg/dL (70-99); Potassium, Blood 3.5 mmol/L (3.5-5.5); Sodium, Blood 146 mmol/L (136-145)
[2020-12-22 10:59] LABS: BASOPHILS PERCENT MAN 0 % (0-2); EOSINOPHILS PERCENT MAN 0 % (0-6)
[2020-12-22 11:06] LABS: LYMPHOCYTES ABSOLUTE MAN 0.49 K/mm3 (0.84-5.20); LYMPHOCYTES PERCENT MAN 4 % (21-46); MONOCYTES ABSOLUTE MAN 2.36 K/mm3 (0.16-1.47); MONOCYTES PERCENT MAN 19 % (4-13); SEG NEUTROPHILS PERCENT MAN 77 % (41-73); TOTAL CELLS COUNTED 100
[2020-12-22 12:33] LABS: NEUTROPHILS ABSOLUTE MAN 9.58 K/mm3 (1.96-9.15)
--- NOTE | 2020-12-22 18:45 | NUR ---
PT REMAINS CONFUSED, ORIENTED TO SELF AND AT TIMES FAMILY, DID RECOGNIZE HER SPOUSE TODAY. VERY AGITATED THIS MORNING, PULLING AT RESTRAINTS, BITING AT MITTS ON HER HANDS. SARGENT CATH REMOVED AROUND 1200 NOON AND PT HAS VOIDED SINCE. SHE IS INCONTINTENT. PRN SEROQUEL ORDERED FOR AGITATION. WILL CONTINUE TO MONITOR AND REPORT TO ONCOMING RN
--- NOTE | 2020-12-23 06:37 | NUR ---
SUMMARY PT REMAINS CONFUSED. PT IN RESTRAINTS. PT PAIN TX PER EMAR W/ RELIEF. PT UNABLE TO FOLLOW DIRECTIONS. PT CHANGED AND REPOSITIONED FREQUENTLY. PT CURRENTLY SLEEPING IN NO DISTRESS. CALL LIGHT IN REACH AND BED ALARM ON.
--- NOTE | 2020-12-23 18:26 | NUR ---
END OF SHIFT SUMMARY: PATIENT MEDICATED FOR PAIN AND AGITATION THROUGHOUT THE SHIFT. PATIENT ESPECIALLY PAINFUL WITH REPOSITIONING. PATIENT CONTINUES TO PULL AT RESTRAINTS AND ATTEMPT TO PICK AT HER RIGHT HIP DRESSING. PATIENT DID NOT TOLERATE ANY PO INTAKE THIS MORNING. DISCUSSED WITH DR. URRUTIA AND FAMILY THAT WAS AT THE BEDSIDE. NEW ORDERS PLACED. PATIENT'S AT THIS TIME IS RELUCTANT TO AGREE TO HOSPICE AT THIS TIME. DISCUSSED HIS WISHES FOR HIS . HE REPORTS THAT HE DOES WANT HER TO BE COMFORTABLE, BUT THAT HE ALSO WANTS HER TO CONTINUE TO LIVE. PATIENT'S DAUGHTER CURTIS IS RECEPTIVE TO THE IDEA OF HOSPICE. PROVIDED SUPPORT TO BOTH AND LISTENED TO/ADDRESSED THEIR CONCERNS.
--- NOTE | 2020-12-23 18:32 | NUR ---
WET COUGH: PATIENT HAD AN OCCASIONAL WET SOUND IN HER THROAT THIS MORNING THAT RESOLVED WITH ELEVATION OF THE HEAD OF THE BED. THIS EVENING, PATIENT NOW HAS A WET COUGH THAT DOES NOT RESOLVE WITH ELEVATION. NO SHORTNESS OF BREATH OR DIFFICULTY BREATHINGING NOTED. DISCUSSED WITH DR. URRUTIA. NEW ORDERS RECEIVED.
--- NOTE | 2020-12-24 04:26 | NUR ---
SHIFT SUMMARY A/O TO SELF ONLY. CURRENTLY IN SOFT BILATERAL WRIST/ANKLE RESTRAINTS WELL SOFT MITTS TO PROTECT LINES AND FOR PATIENT SAFETY. PT RESTLESS T/O NIGHT AND MOANING. 4MG IV MORPHINE GIVEN X2 SO FAR THIS SHIFT. D5 1/2NS RUNNING AT 75. VSS, NO ACUTE CHANGES AT THIS TIME. BED IN LOWEST POSITION WITH CALL LIGHT IN REACH. WILL CONTINUE TO MONITOR AND REPORT TO ONCOMING RN.
[2020-12-24 05:06] LABS: BASOPHILS ABSOLUTE AUTO 0.01 K/mm3 (0.00-0.23); BASOPHILS PERCENT AUTO 0 % (0-2); EOSINOPHILS PERCENT AUTO 0 % (0-6); Hematocrit 32.3 % (33.0-51.0); Hemoglobin 10.6 g/dL (11.5-16.0); IMMATURE GRAN ABSOLUTE AUTO 0.04 K/mm3 (0.00-0.10); IMMATURE GRAN PERCENT AUTO 0 % (0-1); LYMPHOCYTES ABSOLUTE AUTO 0.79 K/mm3 (0.84-5.20); LYMPHOCYTES PERCENT AUTO 8 % (21-46); MONOCYTES ABSOLUTE AUTO 2.24 K/mm3 (0.16-1.47); MONOCYTES PERCENT AUTO 22 % (4-13); Mean Corpuscular HGB 32.4 pg (26.0-34.0); Mean Corpuscular HGB Conc 32.8 g/dL (31.5-36.5); Mean Corpuscular Volume 99 fL (80-100); Mean Platelet Volume 11.3 fL (9.1-12.4); NEUTROPHILS ABSOLUTE AUTO 7.01 K/mm3 (1.96-9.15); NEUTROPHILS PERCENT AUTO 70 % (41-73); Platelet Count 135 K/mm3 (150-400); RDW Coefficient Variation 13.3 % (11.7-14.2); RDW Standard Deviation 48.7 fL (35.1-46.3); Red Blood Cell Count 3.27 M/mm3 (3.80-5.20); White Blood Cell Count 10.09 K/mm3 (4.00-11.30)
[2020-12-24 05:21] LABS: Anion Gap 5 mmol/L (6-16); Blood Urea Nitrogen 12 mg/dL (8-24); Bun/Creatinine Ratio 17.9 (12.0-20.0); CO2, Blood 31 mmol/L (21-32); Calcium, Blood 8.2 mg/dL (8.5-10.1); Chloride, Blood 107 mmol/L (98-108); Creatinine, Blood 0.67 mg/dL (0.40-1.00); Glomerular Filtration Rate >60 (60-); Glucose, Blood 97 mg/dL (70-99); Potassium, Blood 2.8 mmol/L (3.5-5.5); Sodium, Blood 143 mmol/L (136-145)
--- NOTE | 2020-12-24 18:40 | NUR ---
END OF SHIFT SUMMARY: PATIENT TRANSITIONED TO COMFORT CARE THIS AFTERNOON. FAMILY ABLE TO MEET WITH DR. URRUTIA TO DISCUSS PLAN OF CARE AND HAVE QUESTIONS AND CONCERNS ADDRESSED. AT THE BEDSIDE THROUGHOUT THE AFTERNOON. IS ATTENTIVE AND RECEPTIVE TO EDUCATION. PATIENT COMFORT MANAGED WITH PRNS, REPOSITIONING AND ORAL CARE.
--- NOTE | 2020-12-24 22:02 | NUR ---
RN REMOVED BILAT ANKLE RESTRAINTS BUT PT REMAINS IN BILAT WRIST AND TAMARA RESTRAINTS. SHE NO LONGER APPEARS PAINFUL AFTER RECIEVING PRN MORPHINE AND HAS CALMED SOME FOLLOWING IV ATIVAN. SHE IS STILL RESTLESS THOUGH, FIGITING AND PICKING AT THINGS. PT IS SETTELED AT THIS TIME W/O S/S DISTRESS AND APPEARS COMFORTABLE. WCTM AND ATTEMPT REMOVAL OF ADDITIONAL RESTRAINTS.
--- NOTE | 2020-12-25 00:19 | NUR ---
SCOPALAMINE PATCH RX'D FOR CONTINUED ORAL SECRETIONS DESPITE ATROPINE GTTS AND SUCTIONING. WILL APPLY WHEN AVAILABLE FROM PHARMACY.
--- NOTE | 2020-12-25 17:10 | NUR ---
Spiritual care note: Haven appeared to be sleeping while I met with her , Toñito, at bedside. He appears very devoted and loving, calling her the love of his life and his "sweetheart." He was appreciaitve of prayer and gentle housing counselor. Haven was non-responsive to voice and appeared to be sleeping comfortably. I will remain available
--- NOTE | 2020-12-25 17:50 | NUR ---
SHIFT SUMMARY PT RESTING QUIETLY AT THE START OF SHIFT, BUT LATER BECAME AGITATED. PT MEDICATED PER EMAR AND LATER CALMED. BL SOFT MITTS IN PLACE, PT HAS PULLED SEVERAL IV'S AND HAD FALLS AT HOME, RESULTING IN A FX HIP REPAIR. PT ATTEMPTS TO PULL DRSG OFF. FAMILY IN TODAY TO SIT WITH PT. PT WAS INCONTINENT OF URINE EARLIER THIS AM, BUT HAS REMAINED DRY THIS AFTERNOON. NO S/SX OF DISTRESS NOTED. PT REMAINS ON C/C. POSSIBLE D/C ON HOSPICE WHEN ARRANGED. BED ALARM ON FOR SAFETY. CALL LT IN REACH, BUT PT UNABLE TO USE CALL LT EFFECTIVELY.
--- NOTE | 2020-12-25 20:33 | NUR ---
VERIFIED VIDEO MONITORING CALLED VIDEO PIGS FEET CLEANER TO VERIFY VIDEO MONITORING IS IN PLACE
--- NOTE | 2020-12-26 04:12 | NUR ---
SHIFT SUMMARY ADMITTED FOR FRACTURE OF FEMORAL NECK. DNR CODE. PLAN IS FOR PLACEMENT W/HOSPICE TO A FACILITY, [facility]. SOFT MITT RESTRAINTS ARE IN PLACE SHE PULLS OUT IVS AND RIPS OFF HER SURGICAL DRESSING. SHE IS A COMFORT CARE PATIENT. I HAVE NO NEW CONCERNS THIS SHIFT.
--- NOTE | 2020-12-26 17:24 | NUR ---
SHIFT SUMMARY PT HAS BEEN FIDGETY OFF AND ON THIS SHIFT. MEDICATED FOR COMFORT PER EMAR. PT KEEPS EYES MOSTLY CLOSED AND HAS BEEN NONVERBAL. MITTS IN PLACE TO PROTECT PT'S SURGICAL INCISION AND LINES. NO SIGNS OF DISTRESS OR DISCOMFORT AT THIS TIME. WILL CONTINUE TO MONITOR FOR COMFORT.
--- NOTE | 2020-12-27 04:15 | NUR ---
SHIFT SUMMARY ADMITTED FOR FRACTURE OF RIGHT FEMORAL NECK. DNR CODE. SHE IS IN NONVIOLENT RESTRAINTS - MITTS & 4 RAILS. SHE IS CONFUSED, A HIGH FALL RISK. SHE ROLLS AROUND DANGEROUSLY IN BED. SHE DOES PICK AT HER SURGICAL INCISION SITE AND YANKS AT LINES, IV'S, AND TUBES. PLAN IS FOR DC [facility]PICE BEFORE 1000 HRS. I DID MEDICATE ONE TIME FOR ANXIETY. SHE IS ON COMFORT CARE HERE.
[2020-12-27] MEDS ORDERED: ATROPINE SULFATE2 M5 SL (09:10)
[2020-12-27] MEDS ORDERED: MORP20L SL (09:11)
[2020-12-27] MEDS ORDERED: Ativan1 MG PO (09:27)
--- NOTE | 2020-12-27 11:47 | NUR ---
DISCHARGE DISCHARGE BACK TO [facility] STAFF MET WITH PATIENT BEFORE DISCHARGE. AT BEDSIDE. DISCAHREG PACKET AND HARD COPY SCRIPTS WITH TRANSPORT DRIVERS. PATIENT TRANSPORTED VIA GURNEY. IV'S REMOVED WITHOUT ISSUE. BELONGINGS WITH PATIENT.
== END 2020-12-27 11:25 | disposition hospice, home (50) | DRG 521 ==
LOC: ER 18:27 → ERHOLD 23:08 → MEDS 23:08
PROVIDERS: Internal Medicine; Orthopaedic Surgery; Student in an Organized Health Care Education/Training Program; ADMIT Internal Medicine
PROC: 0SRR0JA Replacement of Right Hip Joint, Femoral Surface with Synthetic Substitute, Uncemented, Open Approach (ICD-10-PCS; principal; 2020-12-20 19:00)
DX: S72.001A Fracture of unspecified part of neck of right femur, initial encounter for closed fracture (principal); G93.41 Metabolic encephalopathy; F03.91 Unspecified dementia, unspecified severity, with behavioral disturbance; Z66 Do not resuscitate; Z51.5 Encounter for palliative care; I10 Essential (primary) hypertension; G62.9 Polyneuropathy, unspecified; E03.9 Hypothyroidism, unspecified; Z78.1 Physical restraint status; E78.5 Hyperlipidemia, unspecified; K21.9 Gastro-esophageal reflux disease without esophagitis; F32.9 Major depressive disorder, single episode, unspecified; Z86.73 Personal history of transient ischemic attack (TIA), and cerebral infarction without residual deficits; Z88.0 Allergy status to penicillin; Z88.1 Allergy status to other antibiotic agents; Z88.6 Allergy status to analgesic agent; Z88.8 Allergy status to other drugs, medicaments and biological substances; Z98.890 Other specified postprocedural states; Z79.02 Long term (current) use of antithrombotics/antiplatelets; Z79.899 Other long term (current) drug therapy; W01.0XXA Fall on same level from slipping, tripping and stumbling without subsequent striking against object, initial encounter; Y92.129 Unspecified place in nursing home as the place of occurrence of the external cause
CPT/HCPCS: 36415; 71045; 72170; 80048; 80053; 85025; 85610; 85730; 86850; 86900; 86901; 92610; 93005; 93010; 94760; 96372-59; 96374; 96375; 96376; 97110; 97163; 97166; 97530; 99285-25; A9270; C1776; J0171; J0360; J0690; J0696; J0735; J1100; J1200; J1630; J1885; J1940; J2060; J2270; J2370; J2405; J2704; J2795; J3010; J3480; J7030; J7042; J7050; J7120